=== PATIENT | female | born 1995 | race Caucasian/White ===

== ENCOUNTER → 2020-10-07 17:54 | Outpatient (CLI) | payer OTHER, SELFPAY ==
[2020-10-07 20:16] LABS: COVID19 -Nasal RAPID Negative (Negative)
== END ==
PROVIDERS: Visit Provider Physician Assistant
DX: Z20.822 Contact with and (suspected) exposure to COVID-19 (principal); J02.9 Acute pharyngitis, unspecified
CPT/HCPCS: 87070; 87635

== ENCOUNTER → 2020-11-04 16:19 | Outpatient (CLI) | payer OTHER, SELFPAY ==
[2020-11-04 16:41] LABS: Monotest Negative (Negative)
== END ==
PROVIDERS: Referring Provider Physician Assistant; Visit Provider Physician Assistant
DX: J02.9 Acute pharyngitis, unspecified (principal)
CPT/HCPCS: 36415; 86318

== ENCOUNTER → 2020-12-11 17:59 | Outpatient (CLI) | payer OTHER, SELFPAY | PROVIDERS: Visit Provider Student in an Organized Health Care Education/Training Program | DX: L60.0 Ingrowing nail (principal) | CPT/HCPCS: 87070; 87075; 87077; 87147; 87186; 87205 ==

== ENCOUNTER → 2021-04-18 19:16 | Outpatient (CLI) | payer OTHER, SELFPAY ==
[2021-04-18 20:11] LABS: COVID19 -Nasal RAPID Negative (Negative)
== END ==
PROVIDERS: Referring Provider Nurse Practitioner; Visit Provider Nurse Practitioner
DX: Z20.822 Contact with and (suspected) exposure to COVID-19 (principal)
CPT/HCPCS: 87635

== ENCOUNTER → 2021-05-28 | Outpatient (CLI) | payer SELFPAY | PROVIDERS: Referring Provider Internal Medicine; Visit Provider Internal Medicine | DX: Z23 Encounter for immunization (principal) | CPT/HCPCS: 90471; 90686 ==

== ENCOUNTER → 2021-08-13 10:42 | Outpatient (CLI) | payer OTHER, SELFPAY ==
[2021-08-13 13:38] LABS: COVID19 -Nasal RAPID Negative (Negative)
== END ==
PROVIDERS: Referring Provider Nurse Practitioner Family; Visit Provider Nurse Practitioner Family
DX: Z20.822 Contact with and (suspected) exposure to COVID-19 (principal)
CPT/HCPCS: 87635

== ENCOUNTER → 2021-08-18 08:29 | Outpatient (CLI) | payer OTHER, SELFPAY ==
[2021-08-18 09:01] LABS: COVID19 -Nasal RAPID Negative (Negative)
== END ==
PROVIDERS: Referring Provider Physician Assistant; Visit Provider Physician Assistant
DX: Z20.822 Contact with and (suspected) exposure to COVID-19 (principal)
CPT/HCPCS: 87635

== ENCOUNTER → 2021-08-22 10:15 | Outpatient (CLI) | payer OTHER, SELFPAY ==
[2021-08-22 12:08] LABS: COVID19 -Nasal RAPID Negative (Negative)
== END ==
PROVIDERS: Visit Provider Nurse Practitioner Critical Care Medicine
DX: Z20.822 Contact with and (suspected) exposure to COVID-19 (principal)
CPT/HCPCS: 87635

== ENCOUNTER 2023-02-01 08:10 | Day surgery (SDC) | payer OTHER, SELFPAY ==
[2023-02-01] VITALS (7 sets, daily range): BP systolic 116–130; BP diastolic 79–88; PULSE 88–110; RESP 11–95; TEMP 36.3–36.9; O2SAT 95–98; BMI 20.6
[2023-02-01] MEDS: LACTATED RINGERS 1,000 ML 100 ML IV ×2 (08:45→10:37)
--- NOTE | 2023-02-01 09:28 | P.HPOB_ITS ---
History of Present Illness History of Present Illness Reason for admission: pelvic pain and other (Endometrioma) Narrative: Mario Mcelroy is a 27 year old female 0 who presents for a laparoscopic removal of a left ovarian endometrioma and possible fulguration of endometriosis. This is being done due to an endometrioma seen on ultrasound and patient having a history of pelvic pain, dysmenorrhea, and menorrhagia. FORMERLY [facility], [facility] Medical History (Updated 02/01/23 @ 08:29 by Stephan Cutler RN) Depression Pharyngitis Surgical History (Updated 01/27/23 @ 13:49 by Salma Scott RN) Vanleer teeth removed Social History household members: spouse and family Smoking Status: Never smoker alcohol intake: never Meds Home Medications and Allergies Home Medications Medication Instructions Recorded Confirmed Type Wellbutrin 150 mg PO DAILY 02/01/23 02/01/23 History buspirone 10 mg tablet 10 mg PO DAILY 02/01/23 02/01/23 History fluoxetine 20 mg capsule 20 mg PO DAILY 02/01/23 02/01/23 History Allergies Allergy/AdvReac Type Severity Reaction Status Date / Time amoxicillin [From Augmentin] Allergy Unknown Verified 04/18/21 19:14 clavulanic acid Allergy Unknown Verified 04/18/21 19:14 [From Augmentin] Exam Vital Signs (past 8 hours): - 02/01/23 08:29 Temperature 98.5 F Pulse Rate 110 H Respiratory Rate 18 Blood Pressure 130/81 Pulse Oximetry 98 Oxygen Delivery Method Room Air Oxygen Delivery Method Room Air Narrative Exam Narrative: HEENT: No thyromegaly, no anterior cervical or supraclavicular lymphadenopathy. Lungs:Clear to auscultation bilaterally, no wheezes. Cardiovascular: Regular rate and rhythm, no murmurs, rubs, or gallops. Abdomen: No scars. No hepatosplenomegaly. No masses palpable. External genitalia: Normal Vagina: Normal Cervix: Normal Bimanual exam: 6 Week size uterus. Mobile. Left adnexal fullness and tenderness. Bilateral uterosacral tenderness. Extremities: No edema Assessment & Plan Assessment & Plan narrative: Assessment: 27-year-old 0 with menorrhagia, pelvic pain, dysmenorrhea, and a left ovarian endometrioma Plan: Diagnostic laparoscopy with removal of endometrioma, and possible fulguration of endometriosis. The risks, benefits, and alternatives to the procedure were explained to the patient. The risks including bleeding, infection, injury to the bowel, bladder, or ureters. She understands these risks and agrees to proceed. A full par Q was held and consent form was signed. Time Spent With Patient Time with patient: less than 30 minutes
--- NOTE | 2023-02-01 09:30 | PM.PREOP ---
Pre-operative Note COVID-19 Criteria for continued procedure: Non-surgical alternatives not available or appropriate per current SOC Interval Note History & Physical reviewed/Exam performed by Physician: Yes Changes to H&P: No H&P completed within 30 days and has changed as indicated here:: 02/01/23
--- NOTE | 2023-02-01 10:32 | SUR.OPER ---
Lithotomy on padded OR bed, head on pillow, arms secured on padded arm boards at <90 degrees abduction. Legs secured in padded yellow fins stirrups.
[2023-02-01] MEDS: BUPIVACAINE 0.5% (PF) 30 ML, EPINEPHrine 0.15 MG INJ (10:36)
[2023-02-01] MEDS: METHYLENE BLUE 50 MG/10 ML VIAL IV (10:47)
--- NOTE | 2023-02-01 11:27 | P.OP_ITS ---
Operative Date/Time/Diagnoses Date of procedure: 02/01/23 Time of procedure: 11:27 Pre-op diagnosis: Menorrhagia Dysmenorrhea Left ovarian endometrioma Post-op diagnosis: same Procedure & Clinicians Procedure: Procedures Operation Date: 02/01/23 09:45 Actual Procedure Side Surgeon p Laparoscopic aspiration of Endometrioma, fulguration of endometriosis, chr omotubation, lysis of adhesion left tube to ovary Noelle Flanagan MD Indications: Menorrhagia Dysmenorrhea Left ovarian endometrioma on ultrasound Surgeon: Noelle Flanagan Anesthesia Type: General and Local Operative Notes Findings: 6 week size anteverted uterus Normal right ovary and tube Left ovary with 4 cm endometrioma Left tube stuck to the left ovary Significant endometriosis of the anterior and posterior cul-de-sacs, bilateral uterosacral ligaments, bilateral ovarian fossa, and serosa of the colon. Bilateral patent fallopian tube Normal liver, gallbladder, and appendix. No evidence of endometriosis on the appendix. Closure Type: primary Specimen(s): none Estimated blood loss (mL): 3 Blood products transfused: none Procedure in detail: After informed consent was obtained, the patient was taken to the operating room where she was placed in the dorsal supine position. After adequate general endotracheal anesthesia was achieved, she was placed in the dorsal lithotomy position, and prepped and draped in the usual sterile fashion. A time-out was performed. A bivalve speculum was placed into the vagina and the anterior lip of the cervix was grasped with a single-tooth tenaculum. The cervical os was sequentially dilated until the Zumi uterine manipulator could pass easily into the endometrial cavity. The single-tooth tenaculum was removed from the anterior lip of the cervix. The bivalve speculum was removed from the vagina. Attention was then turned to the abdomen where 6 cc of 0.5% Marcaine with epinephrine were injected in the umbilical fold. A 5 mm incision was made. The Veress needle was placed into the peritoneal cavity, and its placement confirmed by aspiration and drop test. The abdominal cavity was insufflated with 2.9 L of CO2. The Veress needle was removed, and a 5 mm trocar was placed without difficulty. Two other incisions were made 4 cm lateral to the midline after 6 cc of 0.5% Marcaine with epinephrine were injected. Two 5 mm trocars were placed under direct visualization. The probe was used to move the bowel out of the pelvis. The pelvis and abdomen were inspected with the findings noted above. As the left ovary was moved out of the ovarian fossa the endometrioma burst. The ovary had been stuck to the pelvic sidewall. The pelvis was copiously irrigated with warm normal saline. The endometrioma was in the middle of the ovary. The ovary was grasped with an atraumatic grasper. Using a second grasper the wall of the endometrioma was grasped and removed from inside the ovary. Hemostasis was achieved using the spatula cautery. The spatula cautery was used to cauterize proximally 40 endometriotic lesions. There were lesions over top of the left ureter. These were left alone. There were lesions on the serosa of the colon. These were left alone. The pelvis was again copiously irrigated with warm normal saline. No bleeding was noted. A dilute methylene blue solution was pushed through the Zumi uterine manipulator. There was immediate spill from both tubes. The pelvis was again copiously irrigated with warm normal saline. No bleeding was noted. The instruments were removed from the abdomen. The CO2 was allowed to escape. The incisions were closed with 4-0 Monocryl in a subcuticular fashion. Steri-Strips and Allevyn dressings were placed. The Zumi uterine manipulator was removed from the uterus. Sponge, lap, and instrument counts were correct x2. The patient tolerated the procedure well, and was taken to PACU in stable condition. Complications: none Post-operative Condition: stable Disposition: PACU Plan for aftercare: Home after recovery
--- NOTE | 2023-02-01 12:28 | SUR.PHASEII ---
pt reported dizziness, gave snack and reassessed.
== END 2023-02-01 12:40 | disposition home or self-care (01) ==
PROVIDERS: Referring Provider Obstetrics & Gynecology; Visit Provider Obstetrics & Gynecology
PROC: 0U5B4ZZ Destruction of Endometrium, Percutaneous Endoscopic Approach (ICD-10-PCS; CPT 58662; principal; 2023-02-01 09:45)
DX: N80.122 Deep endometriosis of left ovary (principal); N80.319 Endometriosis of the anterior cul-de-sac, unspecified depth; N80.329 Endometriosis of the posterior cul-de-sac, unspecified depth; N80.3C3 Endometriosis of bilateral uterosacral ligament(s), unspecified depth; N80.103 Endometriosis of bilateral ovaries, unspecified depth
CPT/HCPCS: 58662; J0171; J1100; J1170; J2250; J2405; J2704; J3010; Q9968

== ENCOUNTER → 2025-02-12 16:11 | Outpatient (CLI) | payer OTHER, SELFPAY ==
--- NOTE | 2025-02-12 16:13 | DI.RAD.S_ITS ---
PROCEDURE: XR CHEST 2V INDICATIONS: cough TECHNIQUE: 2 views of the chest were acquired. COMPARISON: None. FINDINGS: Surgical changes and devices: None. Lungs and pleura: Lungs are clear. No pleural effusions or pneumothorax. Mediastinum: Mediastinal contours are normal. Heart size is normal. Bones and chest wall: No suspicious bony abnormalities. Soft tissues appear unremarkable. IMPRESSION: No acute cardiopulmonary abnormality is seen. Dictated by: Brendan Palmer M.D. on 02/13/2025 at 11:49 Approved by: Brendan Palmer M.D. on 02/13/2025 at 11:50
== END ==
PROVIDERS: PCP Family Medicine; Referring Provider Nurse Practitioner Family; Visit Provider Nurse Practitioner Family
DX: R05.9 Cough, unspecified (principal)
CPT/HCPCS: 71046

== ENCOUNTER → 2025-05-16 16:09 | Outpatient (CLI) | payer OTHER, SELFPAY ==
--- NOTE | 2025-05-16 16:11 | DI.MRI.S_ITS ---
PROCEDURE: MR KNEE RT WO CON INDICATIONS: Right knee pain TECHNIQUE: Noncontrast sagittal PD fast spin echo and T2 fast spin echo with fat saturation, sagittal 3-D FLASH with fat saturation; coronal T1 spin echo and PD fast spin echo with fat saturation, and axial PD fast spin echo with fat saturation through the knee. COMPARISON: [facility], CR, XR KNEE RT 3V, 04/16/2025, 12:03. FINDINGS: Image quality: Degraded by motion artifact. Menisci: The medial meniscus is intact. Linear horizontal high T2 signal intensity traverses the middle and inner thirds of the lateral meniscal body, demonstrating free edge extension, indicating horizontal tearing. Cruciate ligaments: The anterior and posterior cruciate ligaments appear intact. Medial structures: The medial collateral ligament appears intact. Visualized portions of the pes anserinus tendons appear normal. No abnormal bursal fluid. Lateral structures: The lateral collateral ligament, long and short heads of the biceps femoris tendon appear intact. The popliteus tendon appears normal. Iliotibial band appears normal. Anterior structures: The quadriceps and patellar tendons appear intact. Lateral patellar subluxation. Lateral ventral trochlear prominence with shallow trochlear groove. edema in the infrapatellar fat pad. Bones and cartilage: No bone marrow contusions or fractures. Mild ill-defined STIR signal elevation within the medial and lateral patella. Mild ill-defined STIR signal elevation within the anterior nonweightbearing aspect of the lateral femoral condyle. Mild articular cartilage loss overlies the weight-bearing aspects of the medial and lateral compartments. Articular cartilage fibrillation overlies the patellar apex and lateral patellar facet predominantly inferiorly. Joint space: There is a small knee joint effusion. No Ledesma's cyst. Normal appearing synovial plicae are incidentally noted. IMPRESSION: 1. Lateral meniscal tearing. 2. Findings consistent with lateral patellofemoral friction syndrome. Dictated by: Araceli Nair M.D. on 05/17/2025 at 11:52 Approved by: Araceli Nair M.D. on 05/17/2025 at 11:55
== END ==
LOC: MRI 16:11
PROVIDERS: Family Provider Physician Assistant Surgical; PCP Family Medicine; Referring Provider Physician Assistant Surgical; Visit Provider Physician Assistant Surgical
DX: S83.281A Other tear of lateral meniscus, current injury, right knee, initial encounter (principal); M25.561 Pain in right knee
CPT/HCPCS: 73721